=== PATIENT | male | born 1950 | race Two or more races ===

== ENCOUNTER 2019-06-18 07:00 | Inpatient (IN) | payer MEDICARE ==
[~2019-06-18] VITALS: Ht 177.8 cm; Wt 86.3 kg
[~2019-06-18 07:00] MED LIST: AMLO5TAB4 PO; ASPI-624 PO; CARV-39 PO; LEVO25TA2 PO; LEVO500T47 PO; LISI10TA PO; MAGN400T9 PO; METF10002 PO; METF500T PO; NIAC-1 PO; NIAC400C5 PO; NITR0.4T28 SL; PRAV40TA PO
--- NOTE | 2019-06-18 07:13 | NUR ---
PT BEING WHEELED TO ROOM VIA WC BY [employer].
--- NOTE | 2019-06-18 07:31 | NUR ---
RN USED INTERRUPTER [id number] AND [id number] TO OBTAIN ASSESSMENT AND HX. PT PRESENTED TO ED D/T "CHEST PRESSURE" WITH BREATHING SINCE YESTERDAY. PT STATED HE "THINKS HE HAS A COLD." PT ARRIVED TO ED AT 88%RA. RN APPLIED 4L NC. PT AT 96% AT THIS TIME. PT DENIES WEARING O2 AT HOME. HX OF DM,HTN,HLD, AND AL. PT DENIES PREVIOUS HEART STENTS. PT ALSO DENIES FEELING OF HAVING A HEART ATTACK AT THIS TIME. MD AT BEDSIDE ASSESSING PT.
[2019-06-18] MEDS ORDERED: ASPIRIN 81 MG TABLET EC ONE (07:55)
[2019-06-18] MEDS ORDERED: ASPIRIN 81 MG TABLET CHEW PO ONE (08:00)
[2019-06-18] MEDS ORDERED: SODIUM CHLORIDE FLUSH 10ML SYR IVF ONE (08:00)
[2019-06-18] MEDS ORDERED: ASPIRIN 81 MG TABLET CHEW ONE (08:07)
--- NOTE | 2019-06-18 08:14 | NUR ---
RN ADMINISTERED MEDICATION OER EMAR. PIV STARTED. LABS AND BLOOD CULTURES DRAWN. PT TBAD. AWAITING BED ASSIGNMENT.
[2019-06-18 08:20] LABS: MEAN CORPUSCULAR HEMOGLOBIN 30.7 pg (27.5-34.5); MEAN CORPUSCULAR HGB CONC 33.8 g/dL (33.2-36.2); MEAN CORPUSCULAR VOLUME 90.7 fL (81-97); MEAN PLATELET VOLUME 9.1 fL (7.4-10.4); PLATELET COUNT 210 x10^3/uL (130-400); RED BLOOD COUNT 4.99 x10^6/uL (4.38-5.82); RED CELL DISTRIBUTION WIDTH 13.5 % (9.4-14.8)
[2019-06-18 08:33] LABS: ALANINE AMINOTRANSFERASE 54 U/L (12-78); ALBUMIN 3.7 g/dL (3.4-5.0); ANION GAP 8 mmol/L (5-15); CALCIUM 8.5 mg/dL (8.5-10.1); CHLORIDE 107 mmol/L (98-107); CREATININE 1.34 mg/dL (0.7-1.3)
[2019-06-18 08:35] LABS: MD YES
[2019-06-18 08:36] LABS: LYMPH#(MANUAL) 1.01 x10^3/uL (1-3.4); LYMPHS% (MANUAL) 6 % (22-44); MONOS#(MANUAL) 0.51 x10^3/uL (0.3-2.7); MONOS% (MANUAL) 3 % (2-9); SEG#(MANUAL) 15.38 x10^3/uL (1.8-6.8); SEGS% (MANUAL) 91 % (42-75)
[2019-06-18 08:37] LABS: <PLATELET ESTIMATE> ADEQUATE; <PLT MORPHOLOGY> NORMAL PLT MORPH; <RBC MORPHOLOGY> NORMAL; ALKALINE PHOSPHATASE 86 U/L (45-117); BILIRUBIN,TOTAL 0.5 mg/dL (0.2-1.0); TOTAL PROTEIN 7.4 g/dL (6.4-8.2)
[2019-06-18 08:46] LABS: TROPONIN I 0.648 ng/mL (0.000-0.045)
--- NOTE | 2019-06-18 08:48 | NUR ---
RN DISCUSSED SEPSIS PROTOCOL WITH ERMD. ERMD TO REVIEW LABS AND DIAGNOSTIC TESTS AND ADD INTERVENTIONS IF NEEDED.
--- NOTE | 2019-06-18 08:49 | NUR ---
RN REPORTED CRITICAL TROP LEVEL TO ERMD.
[2019-06-18] MEDS ORDERED: CEFTRIAXONE PMX 1GM/50ML 50 ML ONE (08:51)
--- NOTE | 2019-06-18 08:56 | NUR ---
RN ADMINISTERED ANTIBIOTICS PER EMAR. / BLOOD CULTURES DONE BEFORE ADMINISTRATION. PT RESTING COMFORTABLY ON GURNEY. NO COMPLAINTS OF PAIN OR DISCOMFORT AT THIS TIME. CALL LIGHT AND PERSONAL BELONGINGS WITHIN REACH. AWAITING BED ASSIGNMENT.
[2019-06-18] MEDS ORDERED: AZITHROMYCIN 500 MG in SODIUM CHLORIDE 0.9% 250 ML IVPB ONE (09:00)
[2019-06-18] MEDS ORDERED: CEFTRIAXONE PMX 1GM/50ML 50 ML IVPB ONE (09:00)
[2019-06-18] MEDS ORDERED: LOSA50TA14 PO (09:09)
[2019-06-18] MEDS ORDERED: AMLO-150 PO (09:09)
[2019-06-18] MEDS ORDERED: PRAV40TA2 PO (09:09)
[2019-06-18] MEDS ORDERED: ATOR10TA PO (09:09)
[2019-06-18] MEDS ORDERED: METOPROLOL ER PO (09:09)
--- NOTE | 2019-06-18 09:09 | NUR ---
RN CALLED PT'S PHARMACY AND VERIFIED HOME MEDICATION.
--- NOTE | 2019-06-18 09:39 | NUR ---
Spoke with Ladi in [facility]. Informed her that patient needs a STAT ECHO and she states she will come down [facility].
[2019-06-18] MEDS ORDERED: SODIUM CHLORIDE FLUSH 10ML SYR IVF PRN (10:00)
--- NOTE | 2019-06-18 10:10 | NUR ---
REPORT TO IRVING MARTLE. PT UNDERGOING ECHOCARDIOGRAM AT THIS TIME.
--- NOTE | 2019-06-18 10:47 | NUR ---
RN UNHOOKED PT FROM MONITOR. PT AMBULATED TO RESTROOM WITH A STEADY GAIT. ECHO STILL BEING PERFORMED AT THIS TIME.
[2019-06-18] MEDS ORDERED: NITROGLYCERIN 0.4 MG BOTTLE (25 TABS) SL PRN (13:30)
[2019-06-18] MEDS ORDERED: morphine SULFATE 10 MG/ML, 1ML IVPush PRN (13:30)
[2019-06-18] MEDS ORDERED: ONDANSETRON 2MG/ML, 2ML IVPush PRN (13:30)
[2019-06-18] MEDS ORDERED: ONDANSETRON ODT 4 MG PO PRN (13:30)
[2019-06-18] MEDS ORDERED: ACETAMINOPHEN 325 MG TABLET PO PRN (13:30)
[2019-06-18] MEDS ORDERED: BISACODYL 10 MG SUPP PR PRN (13:30)
[2019-06-18] MEDS ORDERED: POLYETHYLENE GLYCOL 17 GM PACKET PO PRN (13:30)
[2019-06-18] MEDS ORDERED: PROMETHAZINE 25 MG/ML, 1ML IM PRN (13:30)
[2019-06-18] MEDS ORDERED: ATORVASTATIN 80 MG TABLET PO SCH (13:30)
[2019-06-18] MEDS ORDERED: hydrALAzine 20 MG/ML, 1ML IVPush PRN (13:30)
[2019-06-18] MEDS: HEPARIN 5,000 UNITS/ML, 1ML SQ SCH ×2 (13:30→20:50)
[2019-06-18] MEDS ORDERED: OXYcodone IR 5MG TABLET PO PRN (13:30)
[2019-06-18] MEDS ORDERED: DOCUSATE 100 MG CAPSULE PO PRN (13:30)
[2019-06-18 13:35] VITALS: BP 149/81
[2019-06-18 13:55] LABS: FREE T4 (FREE THYROXINE) 0.91 ng/dL (0.76-1.46)
[2019-06-18] MEDS ORDERED: SODIUM CHLORIDE 0.9% 500 ML IV SCH (14:00)
[2019-06-18] MEDS ORDERED: TICAGRELOR 90 MG TABLET ONE (14:25)
[2019-06-18] MEDS ORDERED: FENTANYL PF 100 MCG/2ML ONE (14:25)
[2019-06-18] MEDS ORDERED: BIVALIRUDIN 250 MG ONE (14:25)
[2019-06-18] MEDS ORDERED: MIDAZOLAM 1 MG/ML, 5ML ONE (14:25)
[2019-06-18] MEDS ORDERED: VERAPAMIL 2.5 MG/ML, 2ML ONE (14:25)
[2019-06-18] MEDS ORDERED: HEPARIN 1,000 UNITS/ML, 10ML ONE (14:26)
[2019-06-18] MEDS ORDERED: LIDOCAINE-MPF 1%, 5ML ONE (14:26)
[2019-06-18] MEDS: INSULIN LISPRO 100 UNITS/ML, PEN SQ-INSULIN SCH ×2 (17:07→21:28)
[2019-06-18] MEDS ORDERED: FUROSEMIDE 40 MG/4 ML IV ONE (20:00)
[2019-06-18 20:06] VITALS: BP 189/104
[2019-06-18 21:41] VITALS: BP 139/83
[2019-06-19 03:21] VITALS: BP 133/78
[2019-06-19 05:49] LABS: BASOPHILS # (AUTO) 0.11 x10^3/uL (0-0.1); BASOPHILS % (AUTO) 1 % (0-1); EOSINOPHILS # (AUTO) 0.15 x10^3/uL (0-0.4); EOSINOPHILS % (AUTO) 1 % (1-7); LYMPHOCYTES # (AUTO) 2.35 x10^3/uL (1-3.4); LYMPHOCYTES % (AUTO) 15 % (22-44); MD NO; MEAN CORPUSCULAR HEMOGLOBIN 30.1 pg (27.5-34.5); MEAN CORPUSCULAR HGB CONC 33.4 g/dL (33.2-36.2); MEAN CORPUSCULAR VOLUME 90.2 fL (81-97); MEAN PLATELET VOLUME 9.8 fL (7.4-10.4); MONOCYTES # (AUTO) 1.02 x10^3/uL (0.2-0.8); MONOCYTES % (AUTO) 7 % (2-9); NEUTROPHILS # (AUTO) 11.79 x10^3/uL (1.8-6.8); NEUTROPHILS % (AUTO) 76 % (42-75); PLATELET COUNT 206 x10^3/uL (130-400); RED BLOOD COUNT 4.68 x10^6/uL (4.38-5.82); RED CELL DISTRIBUTION WIDTH 13.6 % (9.4-14.8)
[2019-06-19 05:50] LABS: ALBUMIN 3.3 g/dL (3.4-5.0); ANION GAP 5 mmol/L (5-15); CALCIUM 8.7 mg/dL (8.5-10.1); CHLORIDE 107 mmol/L (98-107)
[2019-06-19] MEDS: HEPARIN 5,000 UNITS/ML, 1ML SQ SCH ×2 (05:54→13:30)
[2019-06-19] MEDS ORDERED: ASPIRIN 325 MG TABLET EC PO SCH (06:00)
[2019-06-19 06:02] LABS: ALANINE AMINOTRANSFERASE 42 U/L (12-78); ALKALINE PHOSPHATASE 79 U/L (45-117); CHOL/HDL RATIO 2.1; CHOLESTEROL, TOTAL 132 mg/dL (140-239); HDL CHOL % 48 % (26-37); HDL CHOLESTEROL (DIRECT) 63 mg/dL (40-60); LDL CHOLESTEROL,CALCULATED 36 mg/dL (54-169); LDL/HDL RATIO 0.6 (0.5-3.0); TOTAL PROTEIN 6.9 g/dL (6.4-8.2); TRIGLYCERIDES 167 mg/dL (50-200); VLDL CHOLESTEROL 33 mg/dL (0-25)
[2019-06-19] MEDS ORDERED: POTASSIUM CHLORIDE 20 MEQ TAB.ER.PRT PO ONE (08:00)
[2019-06-19 08:09] VITALS: BP 134/77
[2019-06-19] MEDS: INSULIN LISPRO 100 UNITS/ML, PEN SQ-INSULIN SCH ×2 (08:12→12:09)
[2019-06-19] MEDS ORDERED: FUROSEMIDE 20 MG/2 ML IV SCH (09:00)
[2019-06-19] MEDS ORDERED: METOPROLOL SUCCINATE 50 MG TAB.ER.24H PO SCH (09:00)
[2019-06-19 12:34] LABS: MICROSCOPIC AUTO
[2019-06-19 12:37] LABS: CULTURE INDICATED? NO
[2019-06-19 13:46] VITALS: BP 127/74
[2019-06-19] MEDS ORDERED: ASPI-650 PO (15:01)
[2019-06-19] MEDS ORDERED: ATOR-2 PO (15:01)
[2019-06-19] MEDS ORDERED: FLU VACC QS2019-20 36MOS UP/PF 0.5 ML IM-VACC ONE (16:30)
== END 2019-06-19 17:31 | disposition home or self-care (01) | DRG 280 ==
LOC: ED 08:03 → EDIP 09:42 → 5SO 11:01
PROVIDERS: ADMIT Internal Medicine; ATTEND Internal Medicine
PROC: 4A023N7 Measurement of Cardiac Sampling and Pressure, Left Heart, Percutaneous Approach (ICD-10-PCS; principal; 2019-06-18)
PROC: B2111ZZ Fluoroscopy of Multiple Coronary Arteries using Low Osmolar Contrast (ICD-10-PCS; 2019-06-18)
DX: I13.0 Hypertensive heart and chronic kidney disease with heart failure and stage 1 through stage 4 chronic kidney disease, or unspecified chronic kidney disease (principal); J96.01 Acute respiratory failure with hypoxia; I21.A1 Myocardial infarction type 2; I50.43 Acute on chronic combined systolic (congestive) and diastolic (congestive) heart failure; T82.897A Other specified complication of cardiac prosthetic devices, implants and grafts, initial encounter; E87.2 Acidosis; J44.1 Chronic obstructive pulmonary disease with (acute) exacerbation; E11.22 Type 2 diabetes mellitus with diabetic chronic kidney disease; E11.65 Type 2 diabetes mellitus with hyperglycemia; E87.6 Hypokalemia; I25.10 Atherosclerotic heart disease of native coronary artery without angina pectoris; I35.0 Nonrheumatic aortic (valve) stenosis; I25.2 Old myocardial infarction; N18.9 Chronic kidney disease, unspecified; Z95.5 Presence of coronary angioplasty implant and graft; Y71.8 Miscellaneous cardiovascular devices associated with adverse incidents, not elsewhere classified
CPT/HCPCS: 36415; 71045; 80053; 80061; 81001; 82962; 83036; 83605; 83735; 83880; 84439; 84443; 84484; 85025; 87040; 90686; 93005; 93306; 93356; 93454; 96365; 96375; 99156; C1769; C1894; G0378; J0456; J0583; J0696; J1644; J1940; J2250; J3010; J1815; J7040; J7050; Q9967

== ENCOUNTER → 2019-07-03 | Outpatient (CLI) | payer MEDICARE ==
[~2019-07-03] MED LIST changes: +AMLO-150 PO; +ASPI-650 PO; +ATOR-2 PO; +ATOR10TA PO; +LOSA50TA14 PO; +METOPROLOL ER PO; +PRAV40TA2 PO; +VISIPAQUE 320 MG/ML, 150ML BOTTLE ONE
== END | disposition home or self-care (01) ==
LOC: RAD 08:57
PROVIDERS: ATTEND Internal Medicine Cardiovascular Disease
DX: I65.23 Occlusion and stenosis of bilateral carotid arteries (principal); R06.02 Shortness of breath; I35.0 Nonrheumatic aortic (valve) stenosis; N20.0 Calculus of kidney
CPT/HCPCS: 71275; 74174; 93880; 94010; 94726; 94729; Q9967

== ENCOUNTER 2019-07-24 12:54 | Emergency (ER) | payer OTHER, MEDICARE ==
[~2019-07-24] VITALS: Ht 177.8 cm; Wt 77.7 kg
[~2019-07-24 12:54] MED LIST changes: +ASPI81TA45 PO; +ATOR10TA9 PO; +CLOP75TA PO; +HYDR-3342 PO; +METO-93 PO; -VISIPAQUE 320 MG/ML, 150ML BOTTLE ONE
[2019-07-24 13:43] LABS: BASOPHILS # (AUTO) 0.02 x10^3/uL (0-0.1); BASOPHILS % (AUTO) 0 % (0-1); EOSINOPHILS # (AUTO) 0.13 x10^3/uL (0-0.4); EOSINOPHILS % (AUTO) 1 % (1-7); LYMPHOCYTES # (AUTO) 1.16 x10^3/uL (1-3.4); LYMPHOCYTES % (AUTO) 12 % (22-44); MD NO; MEAN CORPUSCULAR HGB CONC 34.1 g/dL (33.2-36.2); MEAN CORPUSCULAR VOLUME 88.1 fL (81-97); MEAN PLATELET VOLUME 8.2 fL (7.4-10.4); MONOCYTES # (AUTO) 0.63 x10^3/uL (0.2-0.8); MONOCYTES % (AUTO) 7 % (2-9); NEUTROPHILS % (AUTO) 79 % (42-75); PLATELET COUNT 298 x10^3/uL (130-400); RED BLOOD COUNT 4.35 x10^6/uL (4.38-5.82); RED CELL DISTRIBUTION WIDTH 12.9 % (9.4-14.8)
[2019-07-24 13:52] LABS: ALANINE AMINOTRANSFERASE 22 U/L (12-78); ALBUMIN 2.9 g/dL (3.4-5.0); ANION GAP 8 mmol/L (5-15); CHLORIDE 105 mmol/L (98-107); CREATININE 1.54 mg/dL (0.7-1.3)
[2019-07-24 13:58] LABS: ALKALINE PHOSPHATASE 78 U/L (45-117); BILIRUBIN,TOTAL 0.5 mg/dL (0.2-1.0); TOTAL PROTEIN 7.8 g/dL (6.4-8.2)
--- NOTE | 2019-07-24 14:02 | NUR ---
EXHAUSTER ENGINEER NUMBER [id number] USED FOR CLINICAL SCREEN, ASSESSMENT AND MED REC. PT IN BED, RESPIRATIONS EVEN AND UNLABORED. NO SIGNS OF DISTRESS.
--- NOTE | 2019-07-24 15:17 | NUR ---
PT LAYING IN BED, EYES CLOSED, RESPIRATIONS EVEN AND UNLABORED. CALL LIGHT WITHIN REACH.
--- NOTE | 2019-07-24 15:33 | NUR ---
blood glucose brought to md's attention, stated pt needs to take home meds, will educate pt to take home meds per rx.
--- NOTE | 2019-07-24 15:47 | NUR ---
MIRROR FRAMER [id number] USED FOR D/C INSTRUCTIONS.
[2019-07-24 15:48] VITALS: BP 173/75
== END 2019-07-24 15:59 | disposition home or self-care (01) ==
LOC: ED 15:50
DX: L03.115 Cellulitis of right lower limb (principal); L03.116 Cellulitis of left lower limb; I10 Essential (primary) hypertension; E11.9 Type 2 diabetes mellitus without complications; I25.2 Old myocardial infarction; J44.9 Chronic obstructive pulmonary disease, unspecified
CPT/HCPCS: 36415; 80053; 83880; 84550; 85025; 99284

== ENCOUNTER 2019-08-02 13:46 | Emergency (ER) | payer OTHER, MEDICARE ==
[~2019-08-02] VITALS: Ht 177.8 cm; Wt 77.1 kg
[2019-08-02 15:05] LABS: BASOPHILS # (AUTO) 0.02 x10^3/uL (0-0.1); BASOPHILS % (AUTO) 0 % (0-1); EOSINOPHILS % (AUTO) 2 % (1-7); HCT (SEDRATE) 37.3 % (39.2-51.8); LYMPHOCYTES # (AUTO) 1.53 x10^3/uL (1-3.4); LYMPHOCYTES % (AUTO) 16 % (22-44); MD NO; MEAN CORPUSCULAR HEMOGLOBIN 29.6 pg (27.5-34.5); MEAN CORPUSCULAR HGB CONC 33.4 g/dL (33.2-36.2); MEAN CORPUSCULAR VOLUME 88.6 fL (81-97); MEAN PLATELET VOLUME 7.9 fL (7.4-10.4); MONOCYTES # (AUTO) 0.63 x10^3/uL (0.2-0.8); MONOCYTES % (AUTO) 7 % (2-9); NEUTROPHILS % (AUTO) 75 % (42-75); PLATELET COUNT 353 x10^3/uL (130-400); RED BLOOD COUNT 4.21 x10^6/uL (4.38-5.82); RED CELL DISTRIBUTION WIDTH 13.1 % (9.4-14.8)
[2019-08-02 15:09] LABS: ALBUMIN 3.2 g/dL (3.4-5.0); ANION GAP 8 mmol/L (5-15); CALCIUM 9.2 mg/dL (8.5-10.1); CHLORIDE 108 mmol/L (98-107)
[2019-08-02 15:16] LABS: CREATININE 1.73 mg/dL (0.7-1.3)
--- NOTE | 2019-08-02 16:20 | NUR ---
US AT BEDSIDE
[2019-08-02 17:00] VITALS: BP 161/77
== END 2019-08-02 18:36 | disposition home or self-care (01) ==
LOC: ED 14:20
DX: M25.571 Pain in right ankle and joints of right foot (principal); M25.572 Pain in left ankle and joints of left foot; M25.531 Pain in right wrist; I10 Essential (primary) hypertension; E11.9 Type 2 diabetes mellitus without complications; E78.00 Pure hypercholesterolemia, unspecified
CPT/HCPCS: 36415; 80048; 82040; 84550; 85025; 85651; 86140; 87040; 93306; 99285

== ENCOUNTER 2019-08-04 19:21 | Observation (INO) | payer OTHER, MEDICARE ==
[~2019-08-04] VITALS: Ht 177.8 cm; Wt 75.2 kg
--- NOTE | 2019-08-04 19:41 | NUR ---
Pt here for trouble breathing for multiple days. Pt states cardiac hx, but denies any cp. Pt wob normal and sating well on ra. All monitoring applied. Vss. Call light within reach.
[2019-08-04 20:14] LABS: BASOPHILS % (AUTO) 0 % (0-1); EOSINOPHILS # (AUTO) 0.28 x10^3/uL (0-0.4); EOSINOPHILS % (AUTO) 5 % (1-7); LYMPHOCYTES % (AUTO) 18 % (22-44); MD NO; MEAN CORPUSCULAR HEMOGLOBIN 29.8 pg (27.5-34.5); MEAN CORPUSCULAR HGB CONC 33.6 g/dL (33.2-36.2); MEAN CORPUSCULAR VOLUME 88.7 fL (81-97); MEAN PLATELET VOLUME 7.5 fL (7.4-10.4); MONOCYTES # (AUTO) 0.49 x10^3/uL (0.2-0.8); MONOCYTES % (AUTO) 9 % (2-9); NEUTROPHILS % (AUTO) 69 % (42-75); PLATELET COUNT 301 x10^3/uL (130-400); RED BLOOD COUNT 4.06 x10^6/uL (4.38-5.82); RED CELL DISTRIBUTION WIDTH 12.7 % (9.4-14.8)
[2019-08-04 20:22] LABS: ALANINE AMINOTRANSFERASE 19 U/L (12-78); ANION GAP 7 mmol/L (5-15); CHLORIDE 108 mmol/L (98-107); CREATININE 1.32 mg/dL (0.7-1.3)
[2019-08-04 20:27] LABS: ALKALINE PHOSPHATASE 64 U/L (45-117); BILIRUBIN,TOTAL 0.2 mg/dL (0.2-1.0); TROPONIN I 0.068 ng/mL (0.000-0.045)
--- NOTE | 2019-08-04 21:07 | NUR ---
at bedside to update pt of plan to admit. PT verbally agrees to plan. Iv initiated and med rec accomplished. No other immediate needs. WCTM.
[2019-08-04] MEDS ORDERED: methylPREDNISolone SOD SUCC 125 MG/2 ML ONE (21:41)
[2019-08-04] MEDS ORDERED: FAMOTIDINE 20 MG/2 ML ONE (21:41)
[2019-08-04] MEDS ORDERED: EPINEPHRINE SYRINGE 0.1 MG/ML, 10ML ONE (21:41)
[2019-08-04 22:33] VITALS: BP 175/74
[2019-08-04] MEDS ORDERED: GABAPENTIN 300 MG CAPSULE PO PRN (23:30)
[2019-08-04] MEDS ORDERED: TEMAZEPAM 15 MG CAPSULE PO PRN (23:30)
[2019-08-04] MEDS ORDERED: LIDODERM 5% PATCH TD PRN (23:30)
[2019-08-04] MEDS ORDERED: DOCUSATE 100 MG CAPSULE PO PRN (23:30)
[2019-08-04] MEDS ORDERED: ACETAMINOPHEN 325 MG TABLET PO PRN (23:30)
[2019-08-04] MEDS ORDERED: NITROGLYCERIN 0.4 MG BOTTLE (25 TABS) SL PRN (23:30)
[2019-08-04] MEDS ORDERED: hydrALAzine 20 MG/ML, 1ML IVPush PRN (23:30)
[2019-08-04] MEDS ORDERED: ONDANSETRON ODT 4 MG PO PRN (23:30)
[2019-08-04] MEDS ORDERED: ATORVASTATIN 10 MG TABLET PO SCH (23:30)
[2019-08-05] MEDS ORDERED: ATOR-2 PO (00:02)
[2019-08-05] MEDS: HEPARIN 5,000 UNITS/ML, 1ML SQ SCH ×3 (00:28→16:45)
[2019-08-05] MEDS: AMLODIPINE 5 MG TABLET PO SCH ×2 (00:28→08:34)
[2019-08-05] MEDS ORDERED: ATORVASTATIN 80 MG TABLET PO SCH (00:30)
[2019-08-05 02:33] LABS: TROPONIN I 0.079 ng/mL (0.000-0.045)
[2019-08-05 03:14] VITALS: BP 159/74
[2019-08-05] MEDS ORDERED: OMNIPAQUE 350 MG/ML, 100ML BOTTLE ONE (06:15)
[2019-08-05 07:07] VITALS: BP 144/75
[2019-08-05 08:19] LABS: BASOPHILS # (AUTO) 0.02 x10^3/uL (0-0.1); BASOPHILS % (AUTO) 0 % (0-1); EOSINOPHILS # (AUTO) 0.17 x10^3/uL (0-0.4); EOSINOPHILS % (AUTO) 3 % (1-7); LYMPHOCYTES % (AUTO) 27 % (22-44); MD NO; MEAN CORPUSCULAR HEMOGLOBIN 29.9 pg (27.5-34.5); MEAN CORPUSCULAR HGB CONC 33.8 g/dL (33.2-36.2); MEAN CORPUSCULAR VOLUME 88.4 fL (81-97); MEAN PLATELET VOLUME 7.3 fL (7.4-10.4); MONOCYTES # (AUTO) 0.55 x10^3/uL (0.2-0.8); MONOCYTES % (AUTO) 11 % (2-9); NEUTROPHILS # (AUTO) 3.08 x10^3/uL (1.8-6.8); NEUTROPHILS % (AUTO) 59 % (42-75); PLATELET COUNT 291 x10^3/uL (130-400); RED BLOOD COUNT 4.09 x10^6/uL (4.38-5.82); RED CELL DISTRIBUTION WIDTH 12.8 % (9.4-14.8)
[2019-08-05 08:31] LABS: ANION GAP 6 mmol/L (5-15); CALCIUM 9.1 mg/dL (8.5-10.1); CHLORIDE 106 mmol/L (98-107); CREATININE 1.11 mg/dL (0.7-1.3)
[2019-08-05 08:35] LABS: TROPONIN I 0.095 ng/mL (0.000-0.045)
[2019-08-05] MEDS ORDERED: CLOPIDOGREL 75 MG TABLET PO SCH (09:00)
[2019-08-05] MEDS ORDERED: ASPIRIN 81 MG TABLET EC PO SCH (09:00)
[2019-08-05] MEDS ORDERED: LOSARTAN 100 MG TAB PO SCH (09:00)
[2019-08-05] MEDS: INSULIN LISPRO 100 UNITS/ML, PEN SQ-INSULIN SCH ×2 (12:11→16:29)
[2019-08-05 13:20] LABS: TROPONIN I 0.091 ng/mL (0.000-0.045)
[2019-08-05 13:47] VITALS: BP 138/74
[2019-08-05] MEDS ORDERED: HYDR12.517 PO (15:53)
== END 2019-08-05 17:24 | disposition home or self-care (01) ==
LOC: ED 19:37 → INTOOBSV 22:19 → EDIP 22:19 → 5SO 22:40
PROVIDERS: ADMIT Family Medicine; ATTEND Family Medicine
DX: R06.02 Shortness of breath (principal); R07.9 Chest pain, unspecified; I21.4 Non-ST elevation (NSTEMI) myocardial infarction; I13.0 Hypertensive heart and chronic kidney disease with heart failure and stage 1 through stage 4 chronic kidney disease, or unspecified chronic kidney disease; E11.65 Type 2 diabetes mellitus with hyperglycemia; E11.22 Type 2 diabetes mellitus with diabetic chronic kidney disease; E78.5 Hyperlipidemia, unspecified; D64.9 Anemia, unspecified; I25.10 Atherosclerotic heart disease of native coronary artery without angina pectoris; I25.2 Old myocardial infarction; I50.42 Chronic combined systolic (congestive) and diastolic (congestive) heart failure; J44.9 Chronic obstructive pulmonary disease, unspecified; N18.9 Chronic kidney disease, unspecified; Z95.5 Presence of coronary angioplasty implant and graft; Z79.899 Other long term (current) drug therapy; Z95.2 Presence of prosthetic heart valve
CPT/HCPCS: 36415; 71045; 71275; 80048; 80053; 82962; 83735; 83880; 84100; 84484; 85025; 85379; 93005; 93970; 96372; 99285; G0378; J1644; J1815; Q9967

== ENCOUNTER 2019-11-16 12:35 | Observation (INO) | payer OTHER, MEDICARE ==
[~2019-11-16] VITALS: Ht 172.7 cm; Wt 76.8 kg
[~2019-11-16 12:35] MED LIST changes: +HYDR12.517 PO
--- NOTE | 2019-11-16 12:44 | NUR ---
EKG IN TRIAGE
--- NOTE | 2019-11-16 13:00 | NUR ---
FIRST CONTACT WITH PT. OUT OF BP MEDS (X3 DAYS), AND UNABLE TO OBTAIN REFILLS CURRENTLY. C/O HTN. PT DENIES ANY SX. PT'S AOX4. RESPS EVEN AND UNLABORED. BP/SPO2 MONITORS IN PLACE. CALL LIGHT WITHIN REACH. WOLOF SPEAKING. FAMILY MEMBER AT BEDSIDE.
[2019-11-16] MEDS ORDERED: LABETALOL 5MG/ML, 20ML ONE (13:07)
[2019-11-16] MEDS ORDERED: LABETALOL 5MG/ML, 20ML IVPush ONE (13:30)
--- NOTE | 2019-11-16 13:30 | NUR ---
PIV EST ON L FOREARM WITH NO COMPLICATIONS. PT MEDICATED PER EMAR. PT TOLERATED WELL.
[2019-11-16 13:36] LABS: BASOPHILS # (AUTO) 0.03 x10^3/uL (0-0.1); BASOPHILS % (AUTO) 0 % (0-1); EOSINOPHILS # (AUTO) 0.52 x10^3/uL (0-0.4); EOSINOPHILS % (AUTO) 7 % (1-7); LYMPHOCYTES # (AUTO) 1.69 x10^3/uL (1-3.4); LYMPHOCYTES % (AUTO) 22 % (22-44); MD NO; MEAN CORPUSCULAR HEMOGLOBIN 30.1 pg (27.5-34.5); MEAN CORPUSCULAR HGB CONC 33.6 g/dL (33.2-36.2); MEAN CORPUSCULAR VOLUME 89.7 fL (81-97); MEAN PLATELET VOLUME 9.2 fL (7.4-10.4); MONOCYTES # (AUTO) 0.36 x10^3/uL (0.2-0.8); MONOCYTES % (AUTO) 5 % (2-9); NEUTROPHILS # (AUTO) 4.99 x10^3/uL (1.8-6.8); NEUTROPHILS % (AUTO) 66 % (42-75); PLATELET COUNT 204 x10^3/uL (130-400); RED BLOOD COUNT 4.84 x10^6/uL (4.38-5.82); RED CELL DISTRIBUTION WIDTH 13.7 % (9.4-14.8)
[2019-11-16 13:42] LABS: ALBUMIN 3.3 g/dL (3.4-5.0); CALCIUM 8.8 mg/dL (8.5-10.1)
[2019-11-16 13:47] LABS: ALANINE AMINOTRANSFERASE 24 U/L (12-78); ALKALINE PHOSPHATASE 73 U/L (45-117); BILIRUBIN,TOTAL 0.3 mg/dL (0.2-1.0); CREATININE 1.29 mg/dL (0.7-1.3); TROPONIN I 0.104 ng/mL (0.000-0.045)
[2019-11-16 13:48] LABS: ANION GAP 0 mmol/L (5-15); CHLORIDE 112 mmol/L (98-107)
--- NOTE | 2019-11-16 14:22 | NUR ---
PT RESTING IN [facility]. PT'S AOX4. REPS EVEN AND UNLABORED. BP/SPO2 MONITORS IN PLACE. CALL LIGHT WITHIN REACH.
[2019-11-16] MEDS ORDERED: ASPIRIN 81 MG TABLET CHEW ONE (14:30)
--- NOTE | 2019-11-16 14:50 | NUR ---
PT MEDICATED PER EMAR. PT TOLERATED WELL.
--- NOTE | 2019-11-16 14:51 | NUR ---
PT'S SON'S NUMBER LIBERTY [phone]
[2019-11-16] MEDS ORDERED: ASPIRIN 81 MG TABLET CHEW PO ONE (15:00)
[2019-11-16] MEDS ORDERED: LABETALOL 5MG/ML, 20ML IVPush PRN ×2 (15:30→19:00)
[2019-11-16] MEDS ORDERED: morphine SULFATE 10 MG/ML, 1ML IVPush PRN (15:30)
[2019-11-16] MEDS ORDERED: ACETAMINOPHEN 325 MG TABLET PO PRN (15:30)
[2019-11-16] MEDS ORDERED: MELATONIN 5 MG TABLET PO PRN (15:30)
--- NOTE | 2019-11-16 15:53 | NUR ---
hospitalist at bedside to evaluate at this time.
[2019-11-16] MEDS ORDERED: METF10007 PO (15:56)
[2019-11-16] MEDS: LOSARTAN 100 MG TAB PO SCH (16:29)
--- NOTE | 2019-11-16 16:55 | NUR ---
pt resting in [facility]. pt's aox4. resps even and unlabored. all monitors in place. call light within reach. denies any needs or concerns at this time.
[2019-11-16] MEDS ORDERED: metFORMIN 500 MG TABLET ONE (16:59)
--- NOTE | 2019-11-16 17:02 | NUR ---
diet tray ordered for pt at this time.
[2019-11-16] MEDS: metFORMIN 500 MG TABLET PO SCH (17:05)
--- NOTE | 2019-11-16 17:06 | NUR ---
pt medicated per emar. pt tolerated well.
--- NOTE | 2019-11-16 17:46 | NUR ---
pt's son at bedside at this time.
--- NOTE | 2019-11-16 18:16 | NUR ---
REPORT GIVEN TO GEORGES VILLATORO. ALL QUESTIONS ANSWERED.
[2019-11-16 18:32] VITALS: BP 207/87
[2019-11-16] MEDS: hydrALAzine 20 MG/ML, 1ML IV PRN (18:38)
[2019-11-16 19:16] VITALS: BP 184/90
[2019-11-16 19:50] LABS: TROPONIN I 0.113 ng/mL (0.000-0.045)
[2019-11-16] MEDS ORDERED: ATORVASTATIN 80 MG TABLET PO SCH (21:00)
[2019-11-16 21:25] VITALS: BP 169/88
[2019-11-17 01:04] VITALS: BP 153/73
[2019-11-17 06:14] VITALS: BP 165/76
[2019-11-17 06:31] LABS: BASOPHILS # (AUTO) 0.03 x10^3/uL (0-0.1); BASOPHILS % (AUTO) 0 % (0-1); EOSINOPHILS # (AUTO) 0.81 x10^3/uL (0-0.4); EOSINOPHILS % (AUTO) 11 % (1-7); LYMPHOCYTES # (AUTO) 1.89 x10^3/uL (1-3.4); LYMPHOCYTES % (AUTO) 25 % (22-44); MD NO; MEAN CORPUSCULAR HEMOGLOBIN 29.9 pg (27.5-34.5); MEAN CORPUSCULAR HGB CONC 33.1 g/dL (33.2-36.2); MEAN CORPUSCULAR VOLUME 90.3 fL (81-97); MEAN PLATELET VOLUME 9.2 fL (7.4-10.4); MONOCYTES # (AUTO) 0.44 x10^3/uL (0.2-0.8); MONOCYTES % (AUTO) 6 % (2-9); NEUTROPHILS # (AUTO) 4.26 x10^3/uL (1.8-6.8); NEUTROPHILS % (AUTO) 57 % (42-75); PLATELET COUNT 195 x10^3/uL (130-400); RED BLOOD COUNT 4.85 x10^6/uL (4.38-5.82); RED CELL DISTRIBUTION WIDTH 13.6 % (9.4-14.8)
[2019-11-17 06:41] LABS: ANION GAP 7 mmol/L (5-15); CALCIUM 9.2 mg/dL (8.5-10.1); CHLORIDE 114 mmol/L (98-107); CREATININE 1.18 mg/dL (0.7-1.3)
[2019-11-17 07:01] VITALS: BP 171/84
[2019-11-17] MEDS: metFORMIN 500 MG TABLET PO SCH (08:11)
[2019-11-17] MEDS: LOSARTAN 100 MG TAB PO SCH (08:11)
[2019-11-17] MEDS ORDERED: AMLODIPINE 5 MG TABLET PO ONE (08:30)
[2019-11-17] MEDS ORDERED: CLOPIDOGREL 75 MG TABLET PO SCH (09:00)
[2019-11-17] MEDS ORDERED: ASPIRIN 81 MG TABLET EC PO SCH (09:00)
[2019-11-17 12:52] VITALS: BP 179/97
[2019-11-17 14:12] VITALS: BP 177/73
[2019-11-17] MEDS: hydrALAzine 20 MG/ML, 1ML IV PRN (14:15)
[2019-11-17] MEDS ORDERED: HYDR-3342 PO (14:38)
[2019-11-17] MEDS ORDERED: AMLO-150 PO (14:38)
[2019-11-17 15:11] VITALS: BP 166/69
[2019-11-17] MEDS ORDERED: CARVEDILOL 6.25 MG TABLET PO SCH ×2 (16:00→18:00)
[2019-11-18] MEDS ORDERED: AMLODIPINE 5 MG TABLET PO SCH (09:00)
== END 2019-11-17 15:50 | disposition home or self-care (01) ==
LOC: ED 14:51 → INTOOBSV 15:13 → EDIP 15:13 → 4EST 18:33 → DCLOUNGE 11-17 15:41
PROVIDERS: ADMIT Family Medicine; ATTEND Hospitalist
DX: I16.0 Hypertensive urgency (principal); I35.0 Nonrheumatic aortic (valve) stenosis; I12.9 Hypertensive chronic kidney disease with stage 1 through stage 4 chronic kidney disease, or unspecified chronic kidney disease; E11.22 Type 2 diabetes mellitus with diabetic chronic kidney disease; N18.3 Chronic kidney disease, stage 3 (moderate); J44.9 Chronic obstructive pulmonary disease, unspecified; I25.10 Atherosclerotic heart disease of native coronary artery without angina pectoris; I44.7 Left bundle-branch block, unspecified; E11.65 Type 2 diabetes mellitus with hyperglycemia; R79.89 Other specified abnormal findings of blood chemistry; Z95.2 Presence of prosthetic heart valve; Z91.14 Patient's other noncompliance with medication regimen; Z79.899 Other long term (current) drug therapy; Z79.82 Long term (current) use of aspirin; Z79.84 Long term (current) use of oral hypoglycemic drugs
CPT/HCPCS: 36415; 71045; 80048; 80053; 83880; 84484; 85025; 93005; 96374; 96375; 96376; 99291; G0378; J0360

== ENCOUNTER → 2020-06-02 | Outpatient (CLI) | payer OTHER, MEDICARE ==
[~2020-06-02] MED LIST changes: +METF10007 PO; -NIAC-1 PO; +NIAC-27 PO
== END | disposition home or self-care (01) ==
LOC: CVU 14:17
PROVIDERS: ATTEND Internal Medicine Cardiovascular Disease
DX: Z01.810 Encounter for preprocedural cardiovascular examination (principal); I34.8 Other nonrheumatic mitral valve disorders; I65.29 Occlusion and stenosis of unspecified carotid artery; E78.5 Hyperlipidemia, unspecified; E11.9 Type 2 diabetes mellitus without complications; I10 Essential (primary) hypertension; I25.10 Atherosclerotic heart disease of native coronary artery without angina pectoris; Z95.2 Presence of prosthetic heart valve
CPT/HCPCS: 93306; 93356